=== PATIENT | female | born 1995 | race Hispanic/Latino ===

== ENCOUNTER 2021-03-15 07:56 | Emergency (ER) | payer OTHER | END 2021-03-15 09:54 | disposition home or self-care (01) | LOC: CSHERS 07:56 | DX: O20.0 Threatened abortion (principal); Z3A.01 Less than 8 weeks gestation of pregnancy | CPT/HCPCS: 36415; 84702; 86900; 86901 ==

== ENCOUNTER 2021-07-25 09:35 | Emergency (ER) | payer OTHER ==
[2021-07-25 11:10] LABS: #Eosinphils 0.1 10x3/uL (0.0-0.5); #Monocytes 0.5 10x3/uL (0.0-1.1); #Neutrophils 7.3 10x3/uL (1.5-8.4); %Basophils 0.4 % (0.0-2.0); %Eosinophils 0.7 % (0.0-6.0); %Lymphocytes 17.4 % (18.0-47.0); %Monocytes 5.3 % (0.0-10.0); %Neutrophils 73.3 % (40.0-75.0); Hemoglobin 10.4 g/dL (12.0-15.5); Mean Corpuscular HGB CONC 33.3 g/dL (32.0-36.0); Mean Corpuscular Volume 86.9 fl (81.6-98.3); Mean Platelet Volume 10.6 fl (7.4-10.4); Platelet Count 253 10x3/uL (150-450); RBC Distribution Width 13.9 % (11.5-14.5); Red Blood Cell (RBC) Count 3.59 10x6/uL (3.90-5.03)
[2021-07-25 11:24] LABS: ALT (SGPT) 13 U/L (8-55); AST (SGOT) 15 U/L (5-34); Alkaline Phosphatase 84 U/L (40-110); Anion Gap 14 mmol/L (10-20); BUN (Urea Nitrogen) 9 mg/dL (7.0-18.7); Bilirubin, Total 0.2 mg/dL (0.2-1.2); Calc. Creatinine Clearance 0 mL/min (70-130); Calcium 8.9 mg/dL (7.8-10.44); Carbon Dioxide 21 mmol/L (22-29); Chloride 105 mmol/L (98-107); Globulin 3.8 g/dL (2.4-3.5); Glucose 84 mg/dL (70-105); Potassium 3.9 mmol/L (3.5-5.1); Protein, Total 6.8 g/dL (6.0-8.3); Sodium 136 mmol/L (136-145)
== END 2021-07-25 12:50 | disposition home or self-care (01) ==
LOC: CSHERS 09:35
DX: O99.891 Other specified diseases and conditions complicating pregnancy (principal); R00.0 Tachycardia, unspecified; Z3A.26 26 weeks gestation of pregnancy
CPT/HCPCS: 80053; 83880; 84484; 85025; 93005

== ENCOUNTER 2021-10-18 21:06 | Day surgery (SDC) | payer OTHER ==
[2021-10-18 21:30] VITALS: BMI 45.3
[2021-10-19] MEDS ORDERED: hydrALAZINE 20 MG/ML VIAL SLOW IVP PRN (00:18)
== END 2021-10-18 22:55 | disposition home or self-care (01) ==
LOC: CSHLD/OP 21:06
PROVIDERS: ATTEND Obstetrics & Gynecology
DX: O47.1 False labor at or after 37 completed weeks of gestation (principal); Z3A.38 38 weeks gestation of pregnancy
CPT/HCPCS: 99282

== ENCOUNTER 2021-10-21 08:02 | Outpatient (CLI) | payer OTHER | END 2021-10-21 08:03 | disposition home or self-care (01) | LOC: CSHLAB 08:02 | PROVIDERS: ATTEND Obstetrics & Gynecology | DX: Z20.822 Contact with and (suspected) exposure to COVID-19 (principal) | CPT/HCPCS: 87811 ==

== ENCOUNTER 2021-10-25 19:00 | Inpatient (IN) | payer MEDICAID, OTHER ==
[2021-10-26] MEDS ORDERED: Diphenoxylate HCl/Atropine Tablet PO PRN ×2 (04:25)
[2021-10-26] MEDS ORDERED: Ondansetron PF 4 MG/2 ML Vial IVP PRN ×2 (04:25→15:07)
[2021-10-26] MEDS ORDERED: HYDROcodone/Acetaminophen 5/325 mg Tablet PO PRN (04:25)
[2021-10-26] MEDS ORDERED: Acetaminophen 500 MG TAB PO PRN (04:25)
[2021-10-26] MEDS ORDERED: Carboprost 250 MCG/ML AMP IM PRN (04:25)
[2021-10-26] MEDS ORDERED: Lactated Ringer's 1,000 ML IV SCH (04:25)
[2021-10-26] MEDS ORDERED: Lidocaine 1% (PF) 30 ML VIAL SC PRN (04:25)
[2021-10-26] MEDS ORDERED: hydrALAZINE 20 MG/ML VIAL SLOW IVP PRN (04:25)
[2021-10-26] MEDS ORDERED: Promethazine HCl 25 MG/ML VIAL IM PRN ×2 (04:25→15:07)
[2021-10-26] MEDS ORDERED: NS w/ Oxytocin 30 units 500 ML IV SCH (04:25)
[2021-10-26] MEDS ORDERED: Misoprostol 200 MCG TAB PR PRN (04:25)
[2021-10-26] MEDS ORDERED: Ibuprofen 800 MG TAB PO PRN (04:25)
[2021-10-26 04:28] VITALS: BMI 45.8
[2021-10-26 05:06] LABS: Hemoglobin 11.1 g/dL (12.0-15.5); Mean Corpuscular HGB CONC 32.8 g/dL (32.0-36.0); Mean Corpuscular Hemoglobin 26.6 pg (27.0-33.0); Mean Corpuscular Volume 81.1 fl (81.6-98.3); Mean Platelet Volume 11.5 fl (7.4-10.4); Platelet Count 242 10x3/uL (150-450); RBC Distribution Width 15.4 % (11.5-14.5); Red Blood Cell (RBC) Count 4.17 10x6/uL (3.90-5.03)
[2021-10-26] MEDS: Misoprostol 100 MCG TAB VAG SCH ×2 (05:24→08:50)
[2021-10-26 05:41] LABS: HBSAg Index 0.21 S/CO (0-0.99); Hep B Surf Ag Non-Reactive S/CO (NonReactive)
[2021-10-26 05:42] LABS: Syphilis Antibody Nonreactive (Nonreactive); Syphilis Antibody Index 0.04 S/CO (<1.00 Non-Reactive)
[2021-10-26] MEDS ORDERED: Bupivacaine 0.25% HCL 30 ML VIAL ONE (08:00)
[2021-10-26] MEDS ORDERED: Bupivacaine/Epinephrine 0.25% 30 ML VIAL ONE (08:00)
[2021-10-26] MEDS ORDERED: Lidocaine 2% MPF 10 ML AMP (For Epidural Use) ONE (08:00)
[2021-10-26] MEDS: NS w/ Oxytocin 30 units 500 ML IV SCH (12:53)
[2021-10-26] MEDS ORDERED: Fentanyl 2 mcg/Bup 0.1% Cadd 100 ML ONE (14:37)
[2021-10-26] MEDS ORDERED: diphenhydrAMINE 50 MG/ML VIAL IVP PRN (15:07)
[2021-10-26] MEDS ORDERED: Lactated Ringer's 500 ML IV PRN (15:07)
[2021-10-26] MEDS ORDERED: Naloxone HCl 0.4 mg/ml Vial IVP PRN ×2 (15:07)
[2021-10-26] MEDS ORDERED: Moisturizing Cream (Eucerin) 113 GM JAR TOP PRN (15:07)
[2021-10-26] MEDS ORDERED: Acetaminophen 325 MG TAB PO PRN (15:07)
[2021-10-26] MEDS ORDERED: ePHEDrine Sulfate 50 MG/10 ML VIAL SLOW IVP PRN (15:07)
[2021-10-26] MEDS ORDERED: Fentanyl 2 mcg/Bupivacaine 0.1% Cassette 100 ML EPIDURAL SCH (15:15)
[2021-10-26] MEDS ORDERED: Communication Order-Pharmacy FS SCH (15:15)
[2021-10-27] MEDS ORDERED: Bisacodyl 10 MG SUPP PR PRN (02:39)
[2021-10-27] MEDS ORDERED: Milk Of Magnesia 30 ML UDCUP PO PRN (02:39)
[2021-10-27] MEDS ORDERED: Boostrix 0.5 ML (Tdap) VIAL (>/=7 yrs of age) IM ONE (02:39)
[2021-10-27] MEDS ORDERED: hydrALAZINE 20 MG/ML VIAL SLOW IVP PRN (02:39)
[2021-10-27] MEDS ORDERED: Preparation H Ointment 28 GM TUBE PR PRN (02:39)
[2021-10-27] MEDS: NS w/ Oxytocin 30 units 500 ML IV SCH (02:46)
[2021-10-27] MEDS: Docusate 100 MG CAP PO SCH ×2 (08:41→21:19)
[2021-10-27] MEDS: Prenatal Vitamin 1 TAB PO SCH (08:41)
[2021-10-27] MEDS: traMADol HCl 50 MG TAB PO PRN ×2 (08:41→17:38)
[2021-10-27] MEDS: Ferrous Sulfate 325 MG TAB PO SCH ×2 (08:42→17:40)
[2021-10-27] MEDS: Ibuprofen 800 MG TAB PO SCH ×3 (08:44→21:19)
[2021-10-28] MEDS: Ibuprofen 800 MG TAB PO SCH ×2 (04:56→13:34)
[2021-10-28 07:39] VITALS: BP 100/59; TEMP 98
[2021-10-28] MEDS: Ferrous Sulfate 325 MG TAB PO SCH ×2 (07:58→16:51)
[2021-10-28] MEDS: Misoprostol 100 MCG TAB VAG SCH ×2 (09:01→09:02)
[2021-10-28] MEDS: Docusate 100 MG CAP PO SCH (09:04)
[2021-10-28] MEDS: Prenatal Vitamin 1 TAB PO SCH (09:04)
[2021-10-28] MEDS: traMADol HCl 50 MG TAB PO PRN (11:47)
== END 2021-10-28 18:47 | disposition home or self-care (01) | DRG 807 ==
LOC: CSHLD 10-26 03:50 → CSHPP 10-27 07:55
PROVIDERS: ADMIT Obstetrics & Gynecology; ATTEND Obstetrics & Gynecology
PROC: 10E0XZZ Delivery of Products of Conception, External Approach (ICD-10-PCS; principal; 2021-10-26)
PROC: 0KQM0ZZ Repair Perineum Muscle, Open Approach (ICD-10-PCS; 2021-10-26)
DX: O70.1 Second degree perineal laceration during delivery (principal); Z37.0 Single live birth; Z3A.40 40 weeks gestation of pregnancy
CPT/HCPCS: 51702; 85027; 86780; 86850; 86900; 86901; 87340; J2001; J2590; S0020